=== PATIENT | female | born 1980 | race Caucasian/White ===

== ENCOUNTER 2018-07-04 15:10 | Emergency (ER) | payer MEDICAID ==
[~2018-07-04] VITALS: Ht 167.6 cm; Wt 83.9 kg
[2018-07-04 15:10] VITALS: BP 152/100
--- NOTE | 2018-07-04 15:10 | NUR ---
PATIENT BIB EMS TO ER BED 10.
--- NOTE | 2018-07-04 15:27 | NUR ---
PATIENT PRESENTS TO ED WITH C/O GENERALIZED BODYACHES , PT ADDS IT FEELS SHE HAD BEEN WORKING OUT FOR A LONG TIME AND NOW BODY HURT. PT DENIES N/V/D WITH LAST BM TODAY SOFT NO STRAINING DENIES RECENT INJURY/TRAUMA DENIES N/V/D; SKIN IS PINK/WARM/DRY; AAOX4 WITH EVEN AND STEADY GAIT; LUNGS CLEAR BL; HR EVEN AND REGULAR; PT DENIES ANY FEVER, CP, SOB, OR COUGH AT THIS TIME; PATIENT STATES PAIN OF 9/10 AT THIS TIME; VSS; PATIENT POSITIONED FOR COMFORT; HOB ELEVATED; BEDRAILS UP X2; BED DOWN. ER MD MADE AWARE OF PT STATUS.
[2018-07-04] MEDS ORDERED: NACL 0.9% 1,000 ML IV SCH (15:32)
[2018-07-04] MEDS ORDERED: MORPHINE SULFATE 2 MG/ML SYR IVP ONE (15:35)
[2018-07-04] MEDS ORDERED: ONDANSETRON 4 MG/2 ML VIAL IVP ONE (15:35)
--- NOTE | 2018-07-04 15:45 | NUR ---
LABS DRAWN AT IV START ; HANDED TO LAB UNABLE TO VOID AT THIS TIME
[2018-07-04 15:46] LABS: BASOPHILS # (AUTO) 0.1 K/uL (0.00-0.22); BASOPHILS % (AUTO) 0.7 % (0.0-2.0); EOSINOPHILS # (AUTO) 0.5 K/uL (0-0.4); EOSINOPHILS % (AUTO) 3.3 % (0.0-4.0); HEMATOCRIT 40.4 % (36-48); HEMOGLOBIN 13.5 g/dL (12.0-16.0); LYMPHOCYTES % (AUTO) 19.4 % (20.5-51.1); MEAN CORPUSCULAR HEMOGLOBIN 26 pg (27-31); MEAN CORPUSCULAR HGB CONC 34 g/dL (33-37); MEAN CORPUSCULAR VOLUME 78.2 fL (80-94); MONOCYTES % (AUTO) 6.7 % (1.7-9.3); NEUTROPHILS # (AUTO) 10.7 K/uL (1.8-7.7); NEUTROPHILS % (AUTO) 69.9 % (42.2-75.2); PLATELET COUNT (AUTO) 266 K/uL (140-450); RED BLOOD CELL COUNT(AUTO) 5.16 MIL/uL (4.20-5.40); RED CELL DISTRIBUTION WIDTH 13.9 % (11.6-13.7); WHITE BLOOD COUNT (AUTO) 15.3 K/uL (4.8-10.8)
[2018-07-04 16:24] LABS: ALBUMIN 3.5 g/dL (3.4-5.0); CARBON DIOXIDE 25.6 mmol/L (21-32); CREATININE 0.7 mg/dL (0.6-1.3); TOTAL BILIRUBIN 1.1 mg/dL (0.0-1.0)
[2018-07-04 16:30] LABS: ANION GAP 16.1 (8-16); POTASSIUM 3.7 mmol/L (3.5-5.1)
--- NOTE | 2018-07-04 16:58 | NUR ---
PT RETURNED FROM RADIOLOGY VIA
--- NOTE | 2018-07-04 16:58 | NUR ---
Patient returned from CT scan. RN re-evaluating patient at bedside.
[2018-07-04] MEDS ORDERED: KETOROLAC 15 MG/ML VIAL IVP ONE (17:25)
--- NOTE | 2018-07-04 17:38 | NUR ---
Patient transferred to bed 6 for further care. RN re-evaluating patient at bedside.
--- NOTE | 2018-07-04 17:40 | NUR ---
pt stated pain relieved. friends at bedside.
[2018-07-04 18:08] LABS: APPEARANCE,URINE CLEAR (CLEAR); BILIRUBIN,URINE NEGATIVE (NEGATIVE); BLOOD, URINE TRACE-L (NEGATIVE); COLOR,URINE YELLOW (YELLOW); LEUKOCYTE ESTERASE ,URINE NEGATIVE (NEGATIVE); NITRITE, URINE NEGATIVE (NEGATIVE); UGLUCOSE NEGATIVE (NEGATIVE)
--- NOTE | 2018-07-04 18:35 | NUR ---
Dr. Reyes re-evaluating patient at bedside.
[2018-07-04 18:52] VITALS: BP 138/90
--- NOTE | 2018-07-04 18:53 | NUR ---
Patient discharged with v/s stable. Written and verbal after care instructions given and explained. Patient alert, oriented and verbalized understanding of instructions. Ambulatory with steady gait. All questions addressed prior to discharge. ID band removed. Patient advised to follow up with PMD. Rx of norco and zofran given. Patient educated on indication of medication including possible reaction and side effects. Opportunity to ask questions provided and answered.
== END 2018-07-04 18:53 | disposition home or self-care (01) ==
LOC: MED 15:10
DX: R11.2 Nausea with vomiting, unspecified (principal); R10.13 Epigastric pain; M79.10 Myalgia, unspecified site; I10 Essential (primary) hypertension
CPT/HCPCS: 36415; 74177; 80053; 81003; 83690; 84703; 85025; 96361; 96374; 96375; 99284; G0482; J1885; J2270; J2405; J7030; Q9967

== ENCOUNTER 2018-11-27 16:58 | Emergency (ER) | payer MEDICAID ==
[~2018-11-27] VITALS: Ht 167.6 cm; Wt 90.7 kg
[2018-11-27 17:02] VITALS: BP 156/106
--- NOTE | 2018-11-27 17:07 | NUR ---
TRIAGE COMPLETE. MD AWARE OF BP. OKAY TO WAIT IN LOBBY FOR BED IN ED.
--- NOTE | 2018-11-27 17:07 | NUR ---
PT STATES "I TAKE MEDICINE FOR MY BLOOD PRESSURE AND FOR MY HEART BUT I DONT KNOW WHAT IT IS"
[2018-11-27 18:05] LABS: APPEARANCE,URINE CLEAR (CLEAR); BILIRUBIN,URINE NEGATIVE (NEGATIVE); BLOOD, URINE TRACE-I (NEGATIVE); COLOR,URINE YELLOW (YELLOW); LEUKOCYTE ESTERASE ,URINE NEGATIVE (NEGATIVE); NITRITE, URINE NEGATIVE (NEGATIVE); UGLUCOSE NEGATIVE (NEGATIVE)
[2018-11-27 18:09] LABS: BASOPHILS # (AUTO) 0.1 K/uL (0.00-0.22); BASOPHILS % (AUTO) 0.7 % (0.0-2.0); EOSINOPHILS # (AUTO) 0.4 K/uL (0-0.4); EOSINOPHILS % (AUTO) 2.9 % (0.0-4.0); HEMOGLOBIN 12.4 g/dL (12.0-16.0); LYMPHOCYTES # (AUTO) 2.9 K/uL (2.5-16.5); LYMPHOCYTES % (AUTO) 23.2 % (20.5-51.1); MEAN CORPUSCULAR HEMOGLOBIN 27 pg (27-31); MEAN CORPUSCULAR HGB CONC 34 g/dL (33-37); MEAN CORPUSCULAR VOLUME 79.6 fL (80-94); MONOCYTES # (AUTO) 0.6 K/uL (0.8-1.0); MONOCYTES % (AUTO) 4.8 % (1.7-9.3); NEUTROPHILS # (AUTO) 8.6 K/uL (1.8-7.7); NEUTROPHILS % (AUTO) 68.4 % (42.2-75.2); PLATELET COUNT (AUTO) 265 K/uL (140-450); RED BLOOD CELL COUNT(AUTO) 4.66 MIL/uL (4.20-5.40); RED CELL DISTRIBUTION WIDTH 14.9 % (11.6-13.7); WHITE BLOOD COUNT (AUTO) 12.6 K/uL (4.8-10.8)
[2018-11-27 18:26] LABS: ANION GAP 11.3 (8-16); CARBON DIOXIDE 28.3 mmol/L (21-32); CREATININE 0.6 mg/dL (0.6-1.3); POTASSIUM 3.6 mmol/L (3.5-5.1)
[2018-11-27 18:32] LABS: ALBUMIN 3.4 g/dL (3.4-5.0); TOTAL BILIRUBIN 0.3 mg/dL (0.0-1.0)
[2018-11-27 18:35] LABS: RBC,URINE 0-5 /HPF (0-5); WBC,URINE 0-5 /HPF (0-5)
--- NOTE | 2018-11-27 18:53 | NUR ---
PT AMBULATED TO BED 01.
--- NOTE | 2018-11-27 19:49 | NUR ---
PT C/O LOWER BACK PAIN AND BURNING UPON URINATION X4 DAYS. STATES SHE HAS NAUSEA, DENIES V/D. LAST BM TODAY. ABD SOFT, ROUND, NON TENDER TO PALP. 5/10 PAIN. RR EVEN, UNLABORED. PT RESTING IN BED CALM AND PLEASANT WITH FAMILY AT BEDSIDE. MEDHX: HTN, CARDIAC ALLERGIES: DENIES
[2018-11-27] MEDS ORDERED: KETOROLAC 60 MG/2 ML VIAL IM ONE (20:05)
--- NOTE | 2018-11-27 21:14 | NUR ---
Patient discharged with v/s stable. Written and verbal after care instructions given and explained. Patient alert, oriented and verbalized understanding of instructions. Ambulatory with to home. All questions addressed prior to discharge. ID band removed. Patient advised to follow up with PMD. Rx of MOTRIN AND MINERAL OIL given. Patient educated on indication of medication including possible reaction and side effects. Opportunity to ask questions provided and answered.
[2018-11-27 21:15] VITALS: BP 156/106
== END 2018-11-27 21:14 | disposition home or self-care (01) ==
LOC: MED 16:58
DX: M54.9 Dorsalgia, unspecified (principal); R10.9 Unspecified abdominal pain; R30.9 Painful micturition, unspecified; I10 Essential (primary) hypertension; Z86.79 Personal history of other diseases of the circulatory system
CPT/HCPCS: 36415; 74022; 80053; 81001; 81025; 85025; 96372; 99284; J1885

== ENCOUNTER 2019-08-02 09:12 | Emergency (ER) | payer MEDICAID ==
[~2019-08-02] VITALS: Ht 167.6 cm; Wt 89.8 kg
[2019-08-02 09:15] VITALS: BP 135/75
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
--- NOTE | 2019-08-02 09:44 | NUR ---
DR. BENITO EVALUATING PT AT BEDSIDE
--- NOTE | 2019-08-02 09:52 | NUR ---
Patient discharged with v/s stable. Written and verbal after care instructions given and explained. Patient alert, oriented and verbalized understanding of instructions. Ambulatory with steady gait. All questions addressed prior to discharge. ID band removed. Patient advised to follow up with PMD. Rx of BENADRYL AND HYDROCORTISONE CREAM given. Patient educated on indication of medication including possible reaction and side effects. Opportunity to ask questions provided and answered.
[2019-08-02 09:54] VITALS: BP 135/75
== END 2019-08-02 09:52 | disposition home or self-care (01) ==
LOC: MED 09:12
DX: L25.9 Unspecified contact dermatitis, unspecified cause (principal); I10 Essential (primary) hypertension; I51.89 Other ill-defined heart diseases
CPT/HCPCS: 99282

== ENCOUNTER 2020-12-15 16:48 | Emergency (ER) | payer MEDICAID ==
[~2020-12-15] VITALS: Ht 167.6 cm; Wt 88.9 kg
[2020-12-15 16:56] VITALS: BP 143/87
--- NOTE | 2020-12-15 17:01 | NUR ---
Pt taken to bed 09 via w/c.
--- NOTE | 2020-12-15 17:03 | NUR ---
Pt taken to Ct via ralexi.
[2020-12-15] MEDS ORDERED: NACL 0.9% 1,000 ML IV ONE (17:05)
--- NOTE | 2020-12-15 17:05 | NUR ---
40 Y FEMALE WITH C/O SOB, GENREAL WEAKNESS, FATIGUE, CHEST PAIN AND L SIDED WEAKNESS X3 DAYS. PT STATED "WITH SENSATION SHE FEELS DIFFERENT." PT STATED THE NUMBNESS IS MAINLY FELT IN ON HER L SIDE AND "FEELS DIFFERENT." PATIENT REPORTS SYMPTOMS WORSENED LAST NIGHT WITH COMPLETE LEFT-SIDED WEAKNESS FROM HEAD TO TOE. PATIENT ALSO STATES CHEST PAIN 3/10 RADIATING TO LEFT ARM. PT PLACED INTO A GOWN AND SATELLITE INSTALLER. BED LOCKED IN LOWEST POSITION, SIDE RAILS X1, CALL LIGHT IN REACH. PMH: DM, TACHYCARDIA, HLD, HTN NKA Addendum: 12/15/20 at 1752 by [facility] 2 RN WITNESS AT BEDSIDE REASSESSED PATIENT AFTER CT WHO STATES: ONSET OF SYMPTOMS, LEFT-SIDED SWELLING BEGAN LAST FRIDAY AT 10AM THAT WORSENED AFTER 3 DAYS. PATIENT STATES LAST NIGHT WHILE IN BED, ACUTE ONSET OF CHEST PAIN WITH BILATERAL WEAKNESS L SIDE > R SIDE. PATIENT STATES SPOKE WITH PCP THIS MORNING WHO ADVISED TO GO TO ER FOR EVALUATION. PATIENT ALSO REPORTS CONCERN FOR TONGUE NUMBNESS WHICH IS NOT NORMAL FOR HER. MEDS: PROPANOLOL, METFORMIN, METOPROLOL Addendum: 12/15/20 at 1801 by [facility] PATIENT NOTED WITHOUT SWELLING; STATES SWELLING IS WORSE IN THE MORNING AND EVENING TIME. CAP REFILL <3 SECONDS, SKIN PINK/WARM/DRY.
--- NOTE | 2020-12-15 17:46 | NUR ---
PER ERMD 12 LEAD WAS DONE ON PT AND CAME BACK NSR AT 79 HR.
[2020-12-15 17:57] LABS: BASOPHILS # (AUTO) 0.1 K/uL (0.00-0.22); BASOPHILS % (AUTO) 0.6 % (0.0-2.0); EOSINOPHILS # (AUTO) 0.4 K/uL (0-0.4); EOSINOPHILS % (AUTO) 3.6 % (0.0-4.0); HEMOGLOBIN 12.1 g/dL (12.0-16.0); LYMPHOCYTES # (AUTO) 3.4 K/uL (2.5-16.5); LYMPHOCYTES % (AUTO) 34.2 % (20.5-51.1); MEAN CORPUSCULAR HEMOGLOBIN 27 pg (27-31); MEAN CORPUSCULAR HGB CONC 34 g/dL (33-37); MEAN CORPUSCULAR VOLUME 78.9 fL (80-94); MONOCYTES # (AUTO) 0.7 K/uL (0.8-1.0); MONOCYTES % (AUTO) 7.3 % (1.7-9.3); NEUTROPHILS # (AUTO) 5.4 K/uL (1.8-7.7); NEUTROPHILS % (AUTO) 54.3 % (42.2-75.2); PLATELET COUNT (AUTO) 303 K/uL (140-450); RED BLOOD CELL COUNT(AUTO) 4.56 MIL/uL (4.20-5.40)
[2020-12-15 18:06] LABS: ANION GAP 9.6 (8-16); CARBON DIOXIDE 26.6 mmol/L (21-32); CREATININE 0.7 mg/dL (0.6-1.3); POTASSIUM 3.2 mmol/L (3.5-5.1)
[2020-12-15 18:11] LABS: PROTHROMBIN TIME 9.9 secs (10.8-13.4)
--- NOTE | 2020-12-15 19:15 | NUR ---
Report and transfer of care endorsed to RHEA Laws.
--- NOTE | 2020-12-15 19:29 | NUR ---
pt is awake and alert. vss. pt is in stable condition. pt stated she feels better, no numbness/tingling present, childcare center administrator sym strong/bilat, and pt said the swelling went down. stated she was ready to leave, made aware. bed locked in lowest position, side rails x2. all needs met at this time.
[2020-12-15] MEDS ORDERED: ASPI81CT95 PO (19:37)
[2020-12-15] MEDS ORDERED: POTASSIUM CHLORIDE 10 MEQ TABER PO ONE ×2 (19:40→19:42)
[2020-12-15 19:46] VITALS: BP 127/80
--- NOTE | 2020-12-15 19:46 | NUR ---
Patient discharged with v/s stable. Written and verbal after care instructions given and explained. Patient alert, oriented and verbalized understanding of instructions. Ambulatory with steady gait. All questions addressed prior to discharge. ID band removed. Patient advised to follow up with PMD. Rx of aspirin given. Patient educated on indication of medication including possible reaction and side effects. Opportunity to ask questions provided and answered.
== END 2020-12-15 19:46 | disposition home or self-care (01) ==
LOC: MED 16:48
DX: R20.2 Paresthesia of skin (principal); R20.0 Anesthesia of skin; R53.1 Weakness; I10 Essential (primary) hypertension; Z98.890 Other specified postprocedural states; Z79.899 Other long term (current) drug therapy
CPT/HCPCS: 36415; 70450; 80048; 84484; 85025; 85610; 85730; 96360; 99285

== ENCOUNTER 2021-04-10 18:14 | Emergency (ER) | payer MEDICAID ==
[~2021-04-10] VITALS: Ht 175.3 cm; Wt 91.2 kg
[~2021-04-10 18:14] MED LIST: ASPI81CT95 PO
[2021-04-10 18:48] VITALS: BP 180/115
--- NOTE | 2021-04-10 18:57 | NUR ---
PT AMB TO BED 5
[2021-04-10] MEDS ORDERED: NAPR-54 PO (19:22)
[2021-04-10 19:38] VITALS: BP 180/115
--- NOTE | 2021-04-10 19:38 | NUR ---
Patient discharged with v/s stable. Written and verbal after care instructions given and explained. Patient alert, oriented and verbalized understanding of instructions. Ambulatory with steady gait. All questions addressed prior to discharge. ID band removed. Patient advised to follow up with PMD. Rx of Naproxen given. Patient educated on indication of medication including possible reaction and side effects. Opportunity to ask questions provided and answered. a/ox4, vss, ambulatory w/o assistance, unlabored breathing. Pt seen by ER MD, no nursing interventions needed.
== END 2021-04-10 19:38 | disposition home or self-care (01) ==
LOC: MED 18:14
DX: M25.561 Pain in right knee (principal); M25.562 Pain in left knee; I11.9 Hypertensive heart disease without heart failure; E11.9 Type 2 diabetes mellitus without complications
CPT/HCPCS: 99282

== ENCOUNTER 2022-02-17 20:49 | Emergency (ER) | payer MEDICAID ==
[~2022-02-17] VITALS: Ht 170.2 cm; Wt 84.4 kg
[~2022-02-17 20:49] MED LIST changes: +NAPR-54 PO
[2022-02-17 21:07] VITALS: BP 140/90
--- NOTE | 2022-02-17 21:10 | NUR ---
TO LOBBY A/W BED AMBULATORY
[2022-02-17] MEDS ORDERED: IBUP-2213 PO (22:20)
[2022-02-17] MEDS ORDERED: DOXY-690 PO (22:20)
[2022-02-17] MEDS ORDERED: ACET-9527 PO (22:20)
[2022-02-17] MEDS ORDERED: AMOX-1230 PO (22:20)
[2022-02-17] MEDS ORDERED: CEFP200T20 PO (22:32)
--- NOTE | 2022-02-17 22:35 | NUR ---
SWABS FOR JARRED, INFLUENZA, STREP SENT TO LAB
[2022-02-17 22:46] LABS: APPEARANCE,URINE CLEAR (CLEAR); BILIRUBIN,URINE NEGATIVE (NEGATIVE); BLOOD, URINE NEGATIVE (NEGATIVE); COLOR,URINE YELLOW (YELLOW); LEUKOCYTE ESTERASE ,URINE TRACE (NEGATIVE); NITRITE, URINE NEGATIVE (NEGATIVE); UGLUCOSE 3+ (NEGATIVE)
--- NOTE | 2022-02-17 22:46 | NUR ---
Patient discharged with v/s stable. Written and verbal after care instructions given and explained. Patient alert, oriented and verbalized understanding of instructions. Ambulatory with steady gait. All questions addressed prior to discharge. ID band removed. Patient advised to follow up with PMD. Rx of HYDROCODONE, CEFPODOXIME, AND IBUPROFEN given. Patient educated on indication of medication including possible reaction and side effects. Opportunity to ask questions provided and answered.
[2022-02-17 23:24] LABS: RBC,URINE 0-5 /HPF (0-5); WBC,URINE 0-5 /HPF (0-5)
== END 2022-02-17 22:46 | disposition home or self-care (01) ==
LOC: MED 20:49
DX: I88.9 Nonspecific lymphadenitis, unspecified (principal); Z20.822 Contact with and (suspected) exposure to COVID-19; N12 Tubulo-interstitial nephritis, not specified as acute or chronic; I25.10 Atherosclerotic heart disease of native coronary artery without angina pectoris; I10 Essential (primary) hypertension; E11.9 Type 2 diabetes mellitus without complications; Z79.4 Long term (current) use of insulin; Z79.899 Other long term (current) drug therapy
CPT/HCPCS: 81001; 87081; 87086; 99283

== ENCOUNTER 2022-05-26 14:11 | Emergency (ER) | payer MEDICAID ==
[~2022-05-26] VITALS: Ht 167.6 cm; Wt 91.6 kg
[~2022-05-26 14:11] MED LIST changes: +ACET-9527 PO; +CEFP200T20 PO; +IBUP-2213 PO
[2022-05-26 14:50] VITALS: BP 123/70
[2022-05-26] MEDS ORDERED: LID5T TP (15:15)
[2022-05-26] MEDS ORDERED: CYCL-711 PO (15:15)
[2022-05-26] MEDS ORDERED: KETOROLAC 30 MG/ML VIAL IM ONE (15:20)
[2022-05-26 15:38] VITALS: BP 123/70
--- NOTE | 2022-05-26 15:38 | NUR ---
Patient discharged with v/s stable. Written and verbal after care instructions given and explained. Patient alert, oriented and verbalized understanding of instructions. Ambulatory with steady gait. All questions addressed prior to discharge. ID band removed. Patient advised to follow up with PMD. Rx of LIDODERM, FLEXERIL (SENT) given. Patient educated on indication of medication including possible reaction and side effects. Opportunity to ask questions provided and answered. WORK NOTE GIVEN
== END 2022-05-26 15:38 | disposition home or self-care (01) ==
LOC: MED 14:11
DX: S16.1XXA Strain of muscle, fascia and tendon at neck level, initial encounter (principal); M54.10 Radiculopathy, site unspecified; E11.9 Type 2 diabetes mellitus without complications; I10 Essential (primary) hypertension; Z79.899 Other long term (current) drug therapy; Z79.891 Long term (current) use of opiate analgesic; Z79.1 Long term (current) use of non-steroidal anti-inflammatories (NSAID); Z79.82 Long term (current) use of aspirin; X50.1XXA Overexertion from prolonged static or awkward postures, initial encounter; Y93.E5 Activity, floor mopping and cleaning; Y92.89 Other specified places as the place of occurrence of the external cause; Y99.8 Other external cause status
CPT/HCPCS: 81025; 82948; 96372; 99283; J1885

== ENCOUNTER 2022-06-04 15:02 | Emergency (ER) | payer MEDICAID ==
[~2022-06-04] VITALS: Ht 170.2 cm; Wt 81.2 kg
[~2022-06-04 15:02] MED LIST changes: +CYCL-711 PO; +LID5T TP
[2022-06-04 15:13] VITALS: BP 139/83
--- NOTE | 2022-06-04 15:21 | NUR ---
MD HAN AT BEDSIDE FOR EVALUATION
[2022-06-04] MEDS ORDERED: KETOROLAC 30 MG/ML VIAL IM ONE (15:30)
[2022-06-04] MEDS ORDERED: GABA300C PO (15:46)
[2022-06-04] MEDS ORDERED: ACYC-258 PO (15:46)
--- NOTE | 2022-06-04 16:00 | NUR ---
Patient discharged with v/s stable. Written and verbal after care instructions given and explained. Patient alert, oriented and verbalized understanding of instructions. Ambulatory with steady gait. All questions addressed prior to discharge. ID band removed. Patient advised to follow up with PMD. Rx of ZOVIRAX AND NEURONTIN given. Opportunity to ask questions provided and answered.
== END 2022-06-04 16:00 | disposition home or self-care (01) ==
LOC: MED 15:02
DX: L98.8 Other specified disorders of the skin and subcutaneous tissue (principal); M54.6 Pain in thoracic spine; E11.9 Type 2 diabetes mellitus without complications; I10 Essential (primary) hypertension; Z79.899 Other long term (current) drug therapy; Z79.82 Long term (current) use of aspirin; Z79.1 Long term (current) use of non-steroidal anti-inflammatories (NSAID)
CPT/HCPCS: 81025; 96372; 99283; J1885

== ENCOUNTER 2022-12-04 11:38 | Emergency (ER) | payer MEDICAID ==
[~2022-12-04] VITALS: Ht 170.2 cm; Wt 87.5 kg
[~2022-12-04 11:38] MED LIST changes: +ACYC-258 PO; +GABA300C PO
[2022-12-04 11:49] VITALS: BP 140/93; PULSE 115; RESP 15; TEMP 99.7; O2SAT 98
[2022-12-04] MEDS ORDERED: KETOROLAC 30 MG/ML VIAL IM ONE (12:25)
[2022-12-04] MEDS ORDERED: ACETAMINOPHEN EXTRA STRENGTH 500 MG TAB PO ONE (12:25)
[2022-12-04 13:20] LABS: FLU A ANTIGEN negative (NEGATIVE); FLU B ANTIGEN NEGATIVE (NEGATIVE)
[2022-12-04 13:34] VITALS: O2SAT 98
[2022-12-04] MEDS ORDERED: METF-713 PO (14:33)
[2022-12-04] MEDS ORDERED: ACET-10509 PO (14:33)
[2022-12-04] MEDS ORDERED: IBUP-2213 PO (14:33)
[2022-12-04 14:51] VITALS: BP 135/80; PULSE 88; RESP 15; TEMP 98; O2SAT 99
== END 2022-12-04 14:51 | disposition home or self-care (01) ==
LOC: MED 11:38
DX: J02.9 Acute pharyngitis, unspecified (principal); Z20.822 Contact with and (suspected) exposure to COVID-19; I11.9 Hypertensive heart disease without heart failure; E11.9 Type 2 diabetes mellitus without complications; Z79.4 Long term (current) use of insulin; Z79.899 Other long term (current) drug therapy
CPT/HCPCS: 71045; 87081; 87426; 87804; 96374; 99284; J1885

== ENCOUNTER 2023-01-29 10:40 | Emergency (ER) | payer MEDICAID ==
[~2023-01-29] VITALS: Ht 167.6 cm; Wt 72.6 kg
[~2023-01-29 10:40] MED LIST changes: +ACET-10509 PO; +METF-713 PO
[2023-01-29 10:45] VITALS: BP 179/108; PULSE 86; RESP 20; TEMP 98.4; O2SAT 96
[2023-01-29] MEDS ORDERED: NACL 0.9% 1,000 ML IV ONE (10:50)
[2023-01-29] MEDS ORDERED: KETOROLAC 30 MG/ML VIAL IVP ONE (10:55)
[2023-01-29 11:44] LABS: BASOPHILS # (AUTO) 0.1 K/uL (0.00-0.22); BASOPHILS % (AUTO) 0.8 % (0.0-2.0); EOSINOPHILS # (AUTO) 0.4 K/uL (0-0.4); EOSINOPHILS % (AUTO) 2.2 % (0.0-4.0); HEMOGLOBIN 13.9 g/dL (12.0-16.0); LYMPHOCYTES % (AUTO) 17.4 % (20.5-51.1); MEAN CORPUSCULAR HEMOGLOBIN 25 pg (27-31); MEAN CORPUSCULAR HGB CONC 33 g/dL (33-37); MONOCYTES # (AUTO) 0.8 K/uL (0.8-1.0); MONOCYTES % (AUTO) 4.6 % (1.7-9.3); NEUTROPHILS # (AUTO) 13.1 K/uL (1.8-7.7); PLATELET COUNT (AUTO) 296 K/uL (140-450); RED BLOOD CELL COUNT(AUTO) 5.53 MIL/uL (4.20-5.40); WHITE BLOOD COUNT (AUTO) 17.4 K/uL (4.8-10.8)
[2023-01-29 12:02] LABS: APPEARANCE,URINE SL CLOUDY (CLEAR); BILIRUBIN,URINE NEGATIVE (NEGATIVE); BLOOD, URINE NEGATIVE (NEGATIVE); COLOR,URINE YELLOW (YELLOW); LEUKOCYTE ESTERASE ,URINE NEGATIVE (NEGATIVE); NITRITE, URINE NEGATIVE (NEGATIVE); PROTEIN,URINE 1+ (NEGATIVE); UGLUCOSE TRACE (NEGATIVE); UROBILINOGEN,URINE 0.2 EU/dL (0.2 - 1)
[2023-01-29 12:04] LABS: BACTERIA,URINE 2+ /HPF (None Seen); MUCUS,URINE None Seen /LPF (None Seen); RBC,URINE 0-5 /HPF (0-5); SQUAMOUS EPITHELIAL CELL,UR 4-10 (MOD) /LPF (0-3 (FEW)); WBC,URINE 0-5 /HPF (0-5)
[2023-01-29 12:12] LABS: ALBUMIN 3.5 g/dL (3.4-5.0); ANION GAP 14.2 (8-16); CALCIUM 8.6 mg/dL (8.5-10.1); CARBON DIOXIDE 22.7 mmol/L (21-32); CREATININE 0.6 mg/dL (0.6-1.3); POTASSIUM 3.9 mmol/L (3.5-5.1); TOTAL BILIRUBIN 0.7 mg/dL (0.0-1.0); TOTAL PROTEIN, SERUM 7.8 g/dL (6.4-8.2)
[2023-01-29] MEDS ORDERED: CEPH-588 PO (12:46)
[2023-01-29 13:33] VITALS: BP 153/98; PULSE 82; RESP 18; TEMP 98.1; O2SAT 98
== END 2023-01-29 13:33 | disposition home or self-care (01) ==
LOC: MED 10:40
DX: N39.0 Urinary tract infection, site not specified (principal); E11.9 Type 2 diabetes mellitus without complications; I10 Essential (primary) hypertension; Z79.899 Other long term (current) drug therapy; Z79.1 Long term (current) use of non-steroidal anti-inflammatories (NSAID); Z79.82 Long term (current) use of aspirin
CPT/HCPCS: 71045; 80053; 81001; 81025; 83690; 84484; 85025; 87086; 93005; 96361; 96374; 99285; J1885; J7030